=== PATIENT | female | born 1955 | race Caucasian/White ===

== ENCOUNTER → 2016-09-15 | Outpatient (CLI) | payer BC, OTHER ==
--- NOTE | 2016-09-15 12:05 | REPMRS ---
Patient History The patient states she had a clinical breast exam in 04/13 Patient has history of skin cancer at age 52 and is nulliparous. Family history of breast cancer in maternal grandmother at age 50 or over. Digital Woman Screen Mammo: September 15, 2016 - Exam #: [id number] Bilateral CC and MLO view(s) were taken. Technologist: Devorah Correa, Technologist Prior study comparison: March 22, 2015, digital woman screen mammo performed at [facility]. February 12, 2010, bilateral mammogram performed at [facility]. FINDINGS: The breast tissue is heterogeneously dense. This may lower the sensitivity of mammography. There has been no change in the appearance of the mammogram from the prior studies. There is a moderate amount of residual fibroglandular tissue which is fairly symmetric. There is no interval development of dominant mass, areas of architectural distortion, or clustered microcalcification typical of malignancy. ASSESSMENT: BI-RADS/ACR category 1 mammogram. Negative. Recommendation Routine screening mammogram in 1 year (for women over age 40). This mammogram was interpreted with the aid of an FDA-approved computer-aided dectection system. Electronically Signed By: Abram Blandon MD 09/15/16 [id number]
== END ==
LOC: M WHC 11:16
PROVIDERS: ATTEND Internal Medicine
DX: Z12.31 Encounter for screening mammogram for malignant neoplasm of breast (principal); Z92.89 Personal history of other medical treatment; Z80.3 Family history of malignant neoplasm of breast

== ENCOUNTER → 2017-09-29 | Outpatient (REF) | payer BC, OTHER ==
[2017-09-29 19:31] LABS: C REACTIVE PROTEIN QUANTITATIV < 0.30 MG/DL (0.00-0.30)
[2017-09-29 20:35] LABS: COMPLEMENT C4 13.7 MG/DL (10-40)
[2017-09-29 20:35] LABS: COMPLEMENT C3 120 MG/DL (90-180)
== END ==
LOC: M LAB REF 17:34
DX: M32.10 Systemic lupus erythematosus, organ or system involvement unspecified (principal); Z79.899 Other long term (current) drug therapy
CPT/HCPCS: 86160

== ENCOUNTER 2018-06-18 10:18 | Day surgery (SDC) | payer BC, OTHER ==
[~2018-06-18] VITALS: Ht 167.6 cm; Wt 73.9 kg
[~2018-06-18 10:18] MED LIST: FLUTISP; GABA-1171 PO; HYDR200T3 PO; MONT10TA2 PO; PROAAER10 INH; SYST1SOL OU
[2018-06-18] MEDS ORDERED: LR 1,000 ML IV ONE (10:30)
[2018-06-18] MEDS ORDERED: LIDOCAINE W/EPINEPHRINE 1% 20ML VIAL As Ordered ONE (12:00)
[2018-06-18] MEDS ORDERED: PROPOFOL 200 MG/20 ML VIAL As Ordered ONE (12:07)
[2018-06-18] MEDS ORDERED: MIDAZOLAM INJ 2 MG/2 ML VIAL (J2250) As Ordered ONE (12:07)
[2018-06-18] MEDS ORDERED: fentaNYL 100 MCG/2 ML INJECTION (J3010) As Ordered ONE (12:07)
[2018-06-18] MEDS ORDERED: LIDOCAINE 2% INJ 100 MG/5 ML SDV (FOR ANES.) As Ordered ONE (12:07)
[2018-06-18] MEDS ORDERED: PERCOCET 5MG/325MG TAB As Ordered ONE (13:27)
[2018-06-18] MEDS ORDERED: PERCOCET 5MG/325MG TAB PO PRN (13:30)
[2018-06-18 14:15] VITALS: BP 117/60
--- NOTE | 2018-07-21 08:50 | RO ---
DATE OF PROCEDURE: 06/18/2018 ATTENDING SURGEON: Dr. Vikas Snyder COOLER DELIVERER: Homero Mcallister PA-C PREOPERATIVE DIAGNOSES: Painful right lower extremity varicose veins, bleeding left lower extremity varicose veins with pain. POSTOPERATIVE DIAGNOSES: Painful right lower extremity varicose veins, bleeding left lower extremity varicose veins with pain. PROCEDURE: Left lower extremity varicose vein stab phlebectomy with greater than 10 stab phlebectomies, right lower extremity varicose vein stab phlebectomy with greater than 10 stab phlebectomies. INDICATION: The patient is a 62-year-old female with varicosities in both lower extremities. The right lower extremity varicosities in the calf and thigh region were symptomatic with pain and throbbing, especially when she was on her feet for prolonged periods of time. The patient has tried compressive therapy with compression stockings with minimal success. The left lower extremity varicose vein showed pain in the thigh and calf region and there were varicosities at the ankle, which have had multiple episodes of bleeding, especially after the patient has taken a shower and bleeding has occurred after undergoing showering. The patient was evaluated and the recommendation was to undergo stab phlebectomy of the painful varicose veins in the right and left lower extremity, as well as stab phlebectomy of the varicose veins in the right lower extremity that have had chronic bleeding issues. The procedure was described and explained to the patient in detail including drawing of pictures demonstrating the procedure and the anatomy. Risks, benefits and alternative treatment options were discussed with the patient. Alternative treatment options included but were not limited to no intervention. Benefits included but were not limited to removal of the painful and bleeding varicose veins. Risks included but were not limited to infection, bleeding, renal failure requiring hemodialysis, exacerbation of the patient's lupus, cerebrovascular accident, myocardial infarction pulmonary embolus, deep venous thrombosis (DVT), loss of limb loss, loss of life, poor outcome and poor results. The patient voices understanding and acceptance of these risks, benefits and alternative treatment options and consents to proceed with right and left lower extremity varicose vein stab phlebectomies. No guarantees or promises were made to the patient regarding the procedure, results and/or outcome. ANESTHESIA: Monitored anesthesia care (MAC). ESTIMATED BLOOD LOSS: 50 mL. IV FLUIDS: 150 mL. SPECIMENS: Bilateral lower extremity varicose veins. COMPLICATIONS: None. DRAINS: None. IMPLANTS: None. DESCRIPTION OF PROCEDURE: The patient was taken to the operating room, placed supine on the operating room table after having marked the varicosities in the preoperative holding area in the standing position. The patient was prepped and draped in a standard surgical fashion, after which the varicosities in the right and left lower extremity, which had previously been marked, underwent removal with stab phlebectomies being performed with #11 blade scalpel and mosquitos. Once all the marked varicosities had been removed, the stab phlebectomy sites were closed using amanda. Dressings were then applied. The patient tolerated the procedure well. All instrument, sponge and needle counts were correct at the end the case. There were no complications. Dr. Snyder was present for and directed the entire case. The patient was transferred to the recovery room awake, alert, extubated and in stable condition. The procedure and results were discussed with the patient and her with all their questions being answered. The patient was discharged home in stable condition.
== END 2018-06-18 14:25 | disposition home or self-care (01) ==
LOC: M SDC 10:18
PROVIDERS: ATTEND Surgery Vascular Surgery
DX: I83.811 Varicose veins of right lower extremity with pain (principal); I83.892 Varicose veins of left lower extremity with other complications
CPT/HCPCS: 37765; 88300; J2250; J3010

== ENCOUNTER → 2021-01-07 | Outpatient (CLI) | payer BC, OTHER ==
[~2021-01-07] MED LIST changes: +MONT10TA10 PO; -MONT10TA2 PO
[2021-01-07 11:41] LABS: CHOLESTEROL RISK RATIO 2.726 (<5)
== END ==
LOC: M PLALAB 08:20
PROVIDERS: ATTEND Internal Medicine
DX: E78.00 Pure hypercholesterolemia, unspecified (principal)

== ENCOUNTER → 2022-11-05 | Outpatient (CLI) | payer MEDICARE, OTHER ==
[~2022-11-05] MED LIST changes: +FLUT50SP17; -FLUTISP; -MONT10TA10 PO; +MONT10TA97 PO
== END ==
LOC: M WHC 09:03
PROVIDERS: ATTEND Nurse Practitioner Family
DX: Z12.31 Encounter for screening mammogram for malignant neoplasm of breast (principal)

== ENCOUNTER 2023-01-14 07:13 | Day surgery (SDC) | payer MEDICARE, OTHER ==
[~2023-01-14] VITALS: Ht 167.6 cm; Wt 73.1 kg
[~2023-01-14 07:13] MED LIST changes: -HYDR200T3 PO; +HYDR200T46 PO; +NS 1,000 ML IV ONE; +PLAQ200T4 PO
[2023-01-14] MEDS ORDERED: propofoL 200 MG/20 ML VIAL As Ordered ONE (08:44)
[2023-01-14] MEDS ORDERED: LIDOCAINE 2% 100MG/5ML SDV (FOR ANES.) As Ordered ONE (08:44)
[2023-01-14 08:57] VITALS: TEMP 98
[2023-01-14 09:18] VITALS: BP 146/65; O2SAT 100
== END 2023-01-14 09:40 | disposition home or self-care (01) ==
LOC: M OPP 07:13
PROVIDERS: ATTEND Surgery
DX: Z12.11 Encounter for screening for malignant neoplasm of colon (principal); K63.5 Polyp of colon; K64.1 Second degree hemorrhoids; Z87.891 Personal history of nicotine dependence; Z79.891 Long term (current) use of opiate analgesic; Z88.1 Allergy status to other antibiotic agents; Z88.6 Allergy status to analgesic agent

== ENCOUNTER → 2023-10-21 | Outpatient (CLI) | payer MEDICARE, OTHER ==
[~2023-10-21] MED LIST changes: -FLUT50SP17; +FLUTISP; -NS 1,000 ML IV ONE
[2023-10-21 10:17] LABS: BASO # 0.1 10^3/uL (0.0-0.2); BASO % 1.6 % (0.0-1.0); EOS # 0.2 10^3/uL (0.0-0.5); EOS % 5.9 % (0.0-3.0); HEMATOCRIT 43.4 % (36.0-47.0); HEMOGLOBIN 14.5 g/dl (12.0-15.5); LYMPH # 1.3 10^3/uL (1.5-5.0); LYMPH % 41.7 % (24.0-44.0); MEAN CORPUSCULAR HEMOGLOBIN 31.7 pg (27.0-33.0); MEAN CORPUSCULAR HGB CONC 33.4 g/dl (32.0-36.5); MEAN CORPUSCULAR VOLUME 94.8 fl (80.0-96.0); MONO # 0.4 10^3/uL (0.0-0.8); MONO % 12.4 % (2.0-8.0); NEUTROPHILS # 1.2 10^3/uL (1.5-8.5); NEUTROPHILS % 38.1 % (36.0-66.0); PLATELET COUNT, AUTOMATED 223 10^3/uL (150-450); RED BLOOD COUNT 4.58 10^6/uL (4.00-5.40); WHITE BLOOD COUNT 3.1 10^3/uL (4.0-10.0)
[2023-10-21 10:50] LABS: ALBUMIN 3.8 G/DL (3.2-5.2); ALKALINE PHOSPHATASE 82 U/L (46-116); ALT/SGPT 22 U/L (7.0-40); AST/SGOT 15 U/L (<34); BILIRUBIN,TOTAL 0.5 MG/DL (0.3-1.2); BLOOD UREA NITROGEN 23 MG/DL (9-23); CALCIUM LEVEL 9.3 MG/DL (8.3-10.6); CARBON DIOXIDE LEVEL 30 MMOL/L (20-31); CHLORIDE LEVEL 106 MMOL/L (98-107); CHOLESTEROL LEVEL 178 MG/DL (<200); CHOLESTEROL RISK RATIO 2.85 (<5); CREATININE FOR GFR 0.79 MG/DL (0.55-1.30); GLOMERULAR FILTRATION RATE > 60.0 (>45); GLUCOSE, FASTING 87 MG/DL (74-106); HDL CHOLESTEROL 62.4 MG/DL (>40); LDL CHOLESTEROL 101.8 MG/DL (<100); NON-HDL-C 115.6 MG/DL; POTASSIUM SERUM 4.3 MMOL/L (3.5-5.1); SODIUM LEVEL 142 MMOL/L (136-145); TOTAL PROTEIN 6.3 G/DL (5.7-8.2); TRIGLYCERIDES LEVEL 69 MG/DL (<150)
== END ==
LOC: M PLALAB 07:34
PROVIDERS: ATTEND Nurse Practitioner Family
DX: M15.0 Primary generalized (osteo)arthritis (principal); M32.9 Systemic lupus erythematosus, unspecified; Z79.899 Other long term (current) drug therapy

== ENCOUNTER → 2023-11-13 | Outpatient (CLI) | payer MEDICARE, OTHER | LOC: M WHC 08:31 | PROVIDERS: ATTEND Nurse Practitioner Family | DX: Z12.31 Encounter for screening mammogram for malignant neoplasm of breast (principal); Z13.820 Encounter for screening for osteoporosis; M85.851 Other specified disorders of bone density and structure, right thigh; M85.852 Other specified disorders of bone density and structure, left thigh ==

== ENCOUNTER → 2025-01-04 | Outpatient (CLI) | payer MEDICARE, OTHER | LOC: M WHC 08:58 | PROVIDERS: ATTEND Nurse Practitioner Family | DX: Z12.31 Encounter for screening mammogram for malignant neoplasm of breast (principal) ==